=== PATIENT | female | born 1965 | race Caucasian/White ===

== ENCOUNTER → 2018-01-10 | Outpatient (REF) | payer OTHER ==
[2018-01-10 17:03] LABS: ERYTHROCYTE SEDIMENTATION RATE 27 mm/hr (0-30)
[2018-01-10 17:04] LABS: FERRITIN 69 NG/ML (8-252); RHEUMATOID FACTOR QUANT 10.2 IU/ML (<15.0)
[2018-01-10 20:55] LABS: FOLATE 22.2 NG/ML
[2018-01-13 08:06] LABS: ANTI DOUBLE STRAND-DNA AB 5 IU/mL (0-9); ANTINUCLEAR ANTIBODIES DIRECT Positive (Negative); COPPER PLASMA 127 ug/dL (72-166); LEAD BLOOD ADULT 1 ug/dL (0-4); MERCURY LEVEL None Detected ug/L (0.0-14.9); RNP ANTIBODIES <0.2 AI (0.0-0.9); SJOGREN'S ANTI SS-A <0.2 AI (0.0-0.9); SJOGREN'S ANTI SS-B <0.2 AI (0.0-0.9); SMITH ANTIBODIES <0.2 AI (0.0-0.9)
[2018-01-14 00:08] LABS: VITAMIN E(ALPHA TOCOPHEROL) 22.2 mg/L (7.0-25.1); VITAMIN E(GAMMA TOCOPHEROL) 1.9 mg/L (0.5-5.5)
[2018-01-14 14:35] LABS: CERULOPLASMIN 33.5 mg/dL (19.0-39.0); DOPAMINE PLASMA <30 pg/mL (0-48); EPINEPHRINE PLASMA 36 pg/mL (0-62); NOREPINEPHRINE PLASMA 469 pg/mL (0-874); VITAMIN B1 LEVEL WHOLE BLOOD 134.8 nmol/L (66.5-200.0); VITAMIN B6,PYRIDOXAL PHOSPHATE 6.4 ug/L (2.0-32.8)
== END ==
LOC: M LABNEURO 14:37
DX: R41.3 Other amnesia (principal); R26.89 Other abnormalities of gait and mobility
CPT/HCPCS: 82525

== ENCOUNTER → 2018-07-19 | Outpatient (CLI) | payer OTHER ==
[~2018-07-19] MED LIST: ALPR0.5T3 PO; ESTR1TAB PO; MEDR1TAB2 PO; MOTR200T44 PO; SERT-138 PO; VYTO10TA25 PO; ZETI10TA30 PO; ZOCO40TA PO
--- NOTE | 2018-07-19 09:49 | REPMRS ---
Patient History The patient states she has not had a clinical breast exam in over a year. Patient is nulliparous. Family history of colorectal cancer at age 50 or over in maternal grandmother. Took estrogen for 2 years. 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 Digital Mammo Screening Bilat: July 19, 2018 - Exam #: [id number] Bilateral CC and MLO view(s) were taken. Technologist: Abena Bailey, Technologist Prior study comparison: January 02, 2016, digital mammo diagnostic bilateral performed at [facility]. 2013, digital bilateral screening mammo, [facility]. March 16, 2009, bilateral digital woman screen mammo, performed at [facility]. FINDINGS: There are scattered fibroglandular densities. There has been no change in the appearance of the mammogram from the prior studies. There is a mild amount of scattered fibroglandular density which is fairly symmetric. There is no interval development of dominant mass, architectural distortion, or clustered microcalcification suggestive of malignancy. Assessment: BI-RADS/ACR category 1 mammogram. Negative Mammogram. Recommendation Routine screening mammogram of both breasts in 1 year (for women over age 40). This patient's Lifetime Breast Cancer RIsk is estimated at 12.4 %. This mammogram was interpreted with the aid of an FDA-approved computer-aided dectection system. Electronically Signed By: Domingo Giang MD 07/19/18 0948
== END ==
LOC: M RAD 09:00
PROVIDERS: ATTEND Family Medicine
DX: Z12.31 Encounter for screening mammogram for malignant neoplasm of breast (principal); Z92.23 Personal history of estrogen therapy; Z86.79 Personal history of other diseases of the circulatory system